=== PATIENT | female | born 1985 | race Caucasian/White ===

== ENCOUNTER 2016-10-27 12:10 | Emergency (ER) | payer OTHER ==
[~2016-10-27] VITALS: Ht 165.1 cm; Wt 54.4 kg
[~2016-10-27 12:10] MED LIST: ALBUTEROL17 GM INH; AUGMENTIN875 MG PO; BENZONATATE PO; COMBIVENT U/D3 ML INH; FOLIC ACID; LEVAQUIN750 MG PO; MOTRIN600 M1 PO; MULTI-VITAMIN1 TAB PO; NAPROXEN PO; NO MEDICATIONS; PHENERGAN; PHENERGAN DM1 ML PO; PREDNISONE PO; PRENATAL1 TA1; PROTONIX PO; SUDAFED30 M1 PO; TAMIFLU75 M1 DOB; ZOFRAN ODT4 MG PO; ZYRTEC10 M2 PO
== END 2016-10-27 13:30 | disposition home or self-care (01) ==
LOC: CFTX 12:10 → CED 12:10 → CFTX 12:54
DX: S61.211A Laceration without foreign body of left index finger without damage to nail, initial encounter (principal); F41.0 Panic disorder [episodic paroxysmal anxiety]; F17.210 Nicotine dependence, cigarettes, uncomplicated; Z23 Encounter for immunization; W26.0XXA Contact with knife, initial encounter; Y92.009 Unspecified place in unspecified non-institutional (private) residence as the place of occurrence of the external cause
CPT/HCPCS: 12001; 90471; 90715; 99283